=== PATIENT | female | born 1990 | race Asian ===

== ENCOUNTER → 2017-02-02 | Outpatient (CLI) | payer OTHER ==
[2017-02-02 14:37] LABS: URINE APPEARANCE CLEAR (CLEAR); URINE BILIRUBIN NEG (NEG); URINE COLOR YELLOW; URINE NITRITE NEG (NEG); URINE SPECIFIC GRAVITY 1.016 (1.000-1.030); UROBILINOGEN NEG (NEG)
[2017-02-02 14:44] LABS: MANUAL MICROSCOPIC REQUIRED? NO; REVIEW REQ? NO
== END | disposition home or self-care (01) ==
LOC: C.LABSPEC 13:52
PROVIDERS: ATTEND Obstetrics & Gynecology
DX: Z34.01 Encounter for supervision of normal first pregnancy, first trimester (principal)

== ENCOUNTER → 2017-02-08 | Outpatient (CLI) | payer OTHER ==
[2017-02-08 10:10] LABS: BASO % 0.1 %; BASO ABS # 0.01 K/uL (0-0.2); COMPLETE YES; EOS % 1.9 %; HEMATOCRIT 40.3 % (37-47); IG% 0.2 %; LYMPH % 17.2 %; LYMPH ABS # 1.42 K/uL (1.2-3.4); MEAN CELL VOLUME 85.4 fL (80-100); MEAN CORPUSCULAR HEMOGLOBIN 30.3 pg (25-34); MEAN CORPUSCULAR HGB CONC 35.5 g/dl (32-36); MEAN PLATELET VOLUME 10.9 fL (7.4-10.4); MONO % 6.5 %; NEUT % 74.1 %; PLATELET COUNT 250 K/uL (130-400); RED BLOOD COUNT 4.72 M/uL (4.2-5.4); WHITE BLOOD COUNT 8.26 K/uL (4.8-10.8)
[2017-02-11 00:08] LABS: CHLAMYDIA TRACH RNA*** NOT DETECTED (NOT DETECTED); GC (NEIS GONORRHOEAE)RNA** NOT DETECTED (NOT DETECTED)
== END | disposition home or self-care (01) ==
LOC: C.LAB1850 09:00
PROVIDERS: ATTEND Obstetrics & Gynecology
DX: Z34.01 Encounter for supervision of normal first pregnancy, first trimester (principal)

== ENCOUNTER → 2017-02-08 | Outpatient (CLI) | payer OTHER | END | disposition home or self-care (01) | LOC: C.PAPS 15:05 | PROVIDERS: ATTEND Obstetrics & Gynecology | DX: Z34.01 Encounter for supervision of normal first pregnancy, first trimester (principal) ==

== ENCOUNTER → 2017-03-31 | Outpatient (CLI) | payer OTHER ==
[2017-03-31 18:15] LABS: GTGD 50 Grams
== END | disposition home or self-care (01) ==
LOC: C.LAB1850 16:17
PROVIDERS: ATTEND Obstetrics & Gynecology
DX: Z34.01 Encounter for supervision of normal first pregnancy, first trimester (principal)

== ENCOUNTER → 2017-06-21 | Outpatient (CLI) | payer OTHER ==
[~2017-06-21] MED LIST: DIPH25CA65 PO; PRENTAB26 PO
[2017-06-21 17:32] LABS: HEMATOCRIT 33.8 % (37-47); HEMOGLOBIN 11.7 g/dL (12.0-16.0)
== END | disposition home or self-care (01) ==
LOC: C.LAB1850 16:28
PROVIDERS: ATTEND Obstetrics & Gynecology
DX: Z34.03 Encounter for supervision of normal first pregnancy, third trimester (principal)

== ENCOUNTER → 2017-08-16 | Outpatient (CLI) | payer OTHER | END | disposition home or self-care (01) | LOC: C.LABSPEC 17:33 | PROVIDERS: ATTEND Obstetrics & Gynecology | DX: Z34.03 Encounter for supervision of normal first pregnancy, third trimester (principal) ==

== ENCOUNTER 2017-09-10 22:39 | Outpatient (CLI) | payer OTHER ==
[~2017-09-10] VITALS: Ht 154.9 cm; Wt 65.0 kg
[2017-09-10 23:33] VITALS: Ht 154.9 cm; Wt 65.0 kg
[2017-09-11] MEDS ORDERED: ZOLPIDEM TARTRATE 10 MG TAB PO ONE (01:45)
== END 2017-09-11 01:55 | disposition home or self-care (01) ==
LOC: C.OPB 22:39 → C.LD 22:39 → C.OPB 09-11 01:55
PROVIDERS: ATTEND Obstetrics & Gynecology
DX: Z34.01 Encounter for supervision of normal first pregnancy, first trimester (principal)

== ENCOUNTER 2017-09-11 16:38 | Inpatient (IN) | payer OTHER ==
[~2017-09-11] VITALS: Ht 154.9 cm; Wt 65.0 kg
[~2017-09-11 16:38] MED LIST changes: -DIPH25CA65 PO
[2017-09-11] MEDS ORDERED: LACTATED RINGER'S 1000ML 1,000 ML IV PRN (16:57)
[2017-09-11 17:15] VITALS: Ht 154.9 cm; Wt 65.0 kg
[2017-09-11] MEDS ORDERED: BUPIVACAINE 0.25% 30 ML VIAL ONE (17:15)
[2017-09-11] MEDS ORDERED: EpHEDrine SULFATE INJ 50 MG/ML AMP ONE (17:15)
[2017-09-11] MEDS ORDERED: FENTANYL 2MCG/ML ROPIV 1.25MG/ML 100ML BAG EPI ONE (17:16)
[2017-09-11] MEDS ORDERED: FENTANYL CITRATE INJ 50 MCG/1 ML 2 ML VIAL ONE (17:16)
[2017-09-11] MEDS ORDERED: NALOXONE HCL INJ 1 MG in SODIUM CHLORIDE 0.9% 1000ML 1,000 ML IV PRN (17:22)
[2017-09-11] MEDS ORDERED: LACTATED RINGER'S 1000ML 500 ML IV PRN ×2 (17:22→18:55)
[2017-09-11 17:27] LABS: HEMATOCRIT 41.6 % (37-47); HEMOGLOBIN 14.6 g/dL (12.0-16.0); MEAN CELL VOLUME 87.8 fL (80-100); MEAN CORPUSCULAR HEMOGLOBIN 30.8 pg (25-34); MEAN CORPUSCULAR HGB CONC 35.1 g/dl (32-36); MEAN PLATELET VOLUME 10.9 fL (7.4-10.4); PLATELET COUNT 200 K/uL (130-400); RED CELL DISTRIBUTION WIDTH CV 13.9 % (11.5-14.5); RED CELL DISTRIBUTION WIDTH SD 44.7 fL (36.4-46.3); WHITE BLOOD COUNT 14.81 K/uL (4.8-10.8)
[2017-09-11] MEDS: LACTATED RINGER'S 1000ML 1,000 ML IV SCH ×2 (17:29→18:24)
[2017-09-11] MEDS ORDERED: ONDANSETRON INJ 2 MG/ML 2 ML VIAL IV PRN (17:30)
[2017-09-11] MEDS ORDERED: FENTANYL 2MCG/ML ROPIV 1.25MG/ML 100ML BAG EPI PRN (17:30)
[2017-09-11] MEDS ORDERED: DiphenhydrAMINE HCL 50 MG/ML VIAL IV PRN (17:30)
[2017-09-11] MEDS ORDERED: NALBUPHINE HCL INJ 10 MG/ML AMP IV PRN (17:30)
[2017-09-11] MEDS ORDERED: EpHEDrine SULFATE INJ 50 MG/ML AMP IV PRN (17:30)
[2017-09-11] MEDS ORDERED: NALOXONE HCL INJ 0.4 MG/1 ML VIAL/CARP IV PRN (17:30)
[2017-09-11] MEDS ORDERED: OXYTOCIN 30 UNITS/500ML NSS IV PRN ×2 (19:00→23:00)
[2017-09-11] MEDS ORDERED: SUPERCREAM 0.870 % 15GM JAR EXT PRN (23:00)
[2017-09-11] MEDS ORDERED: BENZOCAINE 20% AER SPR 82.5 GM CAN EXT PRN (23:00)
[2017-09-11] MEDS ORDERED: LANOLIN OINT EXT PRN (23:00)
[2017-09-11] MEDS ORDERED: HYDROCORTISONE ACETATE 25 MG SUPP PR PRN (23:00)
[2017-09-11] MEDS ORDERED: ACETAMINOPHEN/CODEINE 300/30MG TAB PO PRN (23:00)
[2017-09-11] MEDS ORDERED: ACETAMINOPHEN 325 MG TAB PO PRN (23:00)
[2017-09-11] MEDS ORDERED: DIPHTHERIA/TETANUS/PERTUSSIS 0.5 ML SYR/VIAL IM. ONE (23:00)
--- NOTE | 2017-09-11 23:40 | Anesthesia Procedure Note ---
Anesthesia Epidural Removal Nt Date & Time Sep 11, 2017 at 23:40 Vital Signs Pain Intensity: 10.0 Notes Mental Status: alert / awake / arousable, participated in evaluation Nausea / Vomiting: adequately controlled Pain: adequately controlled Airway Patency, RR, SpO2: stable & adequate BP & HR: stable & adequate Hydration State: stable & adequate Neuraxial Anesthesia: was administered Anesthetic Complications: no major complications apparent, pt satisfied with anesthetic care Epidural: removed without complications, with tip intact
[2017-09-12] VITALS (7 sets, daily range): BP systolic 96–107; BP diastolic 59–68; PULSE 101–112; TEMP 36.7–37.1; O2SAT 95–99
[2017-09-12] MEDS: ACETAMINOPHEN/CODEINE 300/30MG TAB PO PRN ×3 (01:36→16:20)
--- NOTE | 2017-09-12 05:13 | DELIVERY SUMMARY ---
DATE OF OPERATION: 09/11/2017 FINDINGS: Viable female with Apgars of 7 and 9. Arterial and venous cord gases pending. Baby delivered spontaneously over a midline episiotomy. Cord gases and cord blood samples obtained. Placenta delivered spontaneously. Episiotomy repaired with 4-0 and 2-0 Vicryl. ESTIMATED BLOOD LOSS: 300 mL. LABOR NOTE: The patient is a 27-year-old 1, para 0 with an EDC of 10 September at 40+ weeks' gestational age who presented to labor and delivery in active labor. The patient had been having prodromal contractions for the previous 36 hours. She had been evaluated on labor and delivery 15 hours prior to admission and was discharged home after receiving a sleeping pill. The patient has had a benign course. Her blood type is B+, antibody negative, rubella immune, hepatitis B negative; she declined a quad screen, she denied a normal 1-hour Glucola x2 and a negative third trimester beta strep culture. Upon admission, the patient was 3 cm dilated, 100% effaced with 0 station. Tracing was category 1. The patient very uncomfortable, anesthesia was consulted and an epidural was placed. Following placement of the epidural 2 hours later, there have been no change in cervical dilatation. She had artificial rupture of membranes for clear fluid. An intrauterine pressure catheter was placed and Pitocin augmentation was initiated for secondary arrest of dilatation. Over the next 3 hours, the patient progressed to full dilatation and began her second stage and she pushed for approximately 20 minutes delivering the viable female infant. Tight nuchal cord was cut on the perineum. The remainder of the baby was delivered. Cord gases and cord blood samples obtained. Placenta delivered spontaneously. Midline episiotomy was repaired with 4-0 and 2-0 Vicryl in a routine fashion. Estimated blood loss 300 mL. Sponge and needle count was correct. I attest to the content of the Intraoperative Record and any orders documented therein. Any exception s are noted below.
[2017-09-12 06:29] LABS: HEMATOCRIT 34.7 % (37-47); HEMOGLOBIN 12.2 g/dL (12.0-16.0)
--- NOTE | 2017-09-12 07:05 | Progress Note ---
Subjective Sep 12, 2017. Subjective conversation w/ patient, physical exam, chart review, lab review Ambulation: ambulating normally Voiding: no voiding problems Passing Gas: Yes Diet Tolerance: Regular Diet Lochia: Moderate Feeding Type: Breast Feeding Comment: reports pain behind both knees bilaterally. Review of Systems Constitutional: No fever, No chills Respiratory: No cough, No shortness of breath Cardiac: No chest pain, No edema Abdomen: No pain, No nausea, No vomiting Female : No dysuria Objective Vital Signs Date Time Temp Pulse Resp B/P (MAP) Pulse Ox O2 Delivery O2 Flow Rate FiO2 09/12/17 03:50 36.7 102 20 99/59 (72) 97 Room Air 09/12/17 01:35 37.0 112 20 101/65 (77) 98 Room Air 09/12/17 01:35 98 Room Air Physical Exam General Appearance: WELL-APPEARING, WD/WN, NO APPARENT DISTRESS Respiratory/Chest: lungs clear, no accessory muscle use Cardiovascular: regular rate, rhythm, no murmur Abdomen: normal bowel sounds, non tender Fundus: Firm Extremities: non-tender, normal inspection, + calf tenderness (c/o tenderness bilaterally, no erythema or edema) Laboratory Results Last 24 Hours Test 09/11/17 17:14 09/12/17 05:57 White Blood Count 14.81 K/uL Red Blood Count 4.74 M/uL Hemoglobin 14.6 g/dL 12.2 g/dL Hematocrit 41.6 % 34.7 % Mean Corpuscular Volume 87.8 fL Mean Corpuscular Hemoglobin 30.8 pg Mean Corpuscular Hemoglobin Concent 35.1 g/dl RDW Standard Deviation 44.7 fL RDW Coefficient of Variation 13.9 % Platelet Count 200 K/uL Mean Platelet Volume 10.9 fL Medications Current Inpatient Medications Medications (Trade) Dose Ordered Sig/Sonam Route Start Time Stop Time Status Last Admin Dose Admin Oxytocin (Pitocin IV) 30 units UD PRN IV 09/11/17 23:00 10/11/17 22:59 Benzocaine (Dermoplast Aero Spr) 1 appln PRN PRN EXT 09/11/17 23:00 10/11/17 22:59 09/12/17 01:40 1 APPLN Cocaine HCl (Supercream 0.870% Cr) BID PRN EXT 09/11/17 23:00 09/25/17 22:59 Hydrocortisone Acetate (Anusol Hc Supp) 25 mg BID PRN ND 09/11/17 23:00 10/11/17 22:59 Lanolin (Lanolin Oint) PRN PRN EXT 09/11/17 23:00 10/11/17 22:59 Prenat Multivit/ [place]/Iron/Folic Ac ( Vitamin Tab) 1 tab DAILY PO 09/12/17 08:00 10/12/17 07:59 Ibuprofen (Motrin Tab) 600 mg Q4H PRN PO 09/11/17 23:00 10/11/17 22:59 Acetaminophen (Tylenol Tab) 650 mg Q6H PRN PO 09/11/17 23:00 10/11/17 22:59 Acetaminophen/ Codeine Phosphate (Tylenol w/ Codeine #3 Tab) 1 tab Q4H PRN PO 09/11/17 23:00 10/11/17 22:59 09/12/17 01:36 1 TAB Acetaminophen/ Codeine Phosphate (Tylenol w/ Codeine #3 Tab) 2 tab Q4H PRN PO 09/11/17 23:00 10/11/17 22:59 Bisacodyl (Dulcolax Tab) 5 mg 20 PO 09/12/17 20:00 09/12/17 20:01 Docusate Sodium (coLACE CAP) 100 mg BID PO 09/12/17 08:00 10/12/17 07:59 Ferrous Sulfate (Feosol Tab) 325 mg DAILY PO 09/12/17 08:00 10/12/17 07:59 Assessment and Plan Post-, Post-Op Day#: 1 Continue Routine Care: 27 F , B+/RI/GBS-, PPD 1 recovering well, but has bilateral LE tenderness. Reviewed patients vitals, HR approx 100, BP 100/60. Patient did complain of bilateral upper calf/popliteal pain. No overlying erythema or warmth. No family history or personal h/o DVT or coagulopathy. Pt hgb was 14.6 on admission---> 12.2 today. Plan; 1. Recovery from vaginal delivery-- Encourage PO intake, follow i/o's, ambulate , support BF, control pain 2. Bilateral calf/popliteal tenderness--R/o DVT--Bilateral doppler USG. Likely MSK in origin. Will continue to follow. Resident Physician Supervision Note: I interviewed and examined the patient. Discussed with Dr. Espinosa and agree with findings and plan as documented in the note. Any exceptions or clarifications are listed here: Pt c/o bilateral calf tenderness. painful to palpation, no erythema or edema, (-)Park's, suspect muscle pain but will check bilateral Doppler Documented By: Tristan Paulino
[2017-09-12] MEDS: DOCUSATE SODIUM 100 MG CAP PO SCH ×2 (08:10→19:45)
[2017-09-12] MEDS: FERROUS SULFATE 325 MG TAB PO SCH (08:10)
[2017-09-12] MEDS: IBUPROFEN 600 MG TAB PO PRN ×3 (08:10→19:46)
[2017-09-12] MEDS: PRENATAL VITAMIN TAB PO SCH (08:10)
--- NOTE | 2017-09-12 09:37 | DIAGNOSTIC IMAGING REPORT ---
BILATERAL LOWER EXTREMITY VENOUS DOPPLER CLINICAL HISTORY: bilateral calf/popliteal pain COMPARISON STUDY: No previous studies for comparison. TECHNIQUE: Sonography of the deep venous system of the bilateral lower extremities was performed. Compression and augmentation were evaluated. FINDINGS: The bilateral common femoral, superficial femoral and popliteal veins were compressible. Augmentation was normal. Flow was shown within the deep calf vessels. IMPRESSION: No evidence of deep venous thrombus within the bilateral lower extremities. Electronically signed by: Yovany Proctor M.D. 09/12/2017 9:36 AM Dictated Date/Time: 09/12/2017 9:36 AM
[2017-09-12] MEDS ORDERED: BISACODYL 5 MG TABEC PO SCH (20:00)
--- NOTE | 2017-09-13 07:00 | Progress Note ---
Subjective Sep 13, 2017. Subjective conversation w/ patient, physical exam, chart review, lab review Ambulation: ambulating normally Voiding: no voiding problems Passing Gas: Yes Diet Tolerance: Regular Diet Lochia: Small Feeding Type: Breast Feeding Review of Systems Constitutional: No fever, No chills Respiratory: No cough, No shortness of breath Cardiac: No chest pain Abdomen: No pain, No nausea, No vomiting Female : No dysuria Objective Vital Signs Date Time Temp Pulse Resp B/P (MAP) Pulse Ox O2 Delivery O2 Flow Rate FiO2 09/12/17 23:45 36.7 111 16 98/63 (75) 99 Room Air 09/12/17 23:45 Room Air 09/12/17 20:00 36.8 108 16 107/68 (81) Room Air 09/12/17 16:00 Room Air 09/12/17 16:00 36.8 101 18 98/59 (72) Room Air 09/12/17 12:00 37.1 103 18 97/59 (72) Room Air 09/12/17 07:50 95 Room Air 09/12/17 07:50 36.8 104 16 96/63 (74) 95 Room Air Physical Exam General Appearance: WELL-APPEARING, WD/WN, NO APPARENT DISTRESS Respiratory/Chest: lungs clear, no respiratory distress Cardiovascular: regular rate, rhythm, no murmur Abdomen: non tender, soft Fundus: Firm, Relation to Umbilicus (below umbilicus ) Extremities: non-tender, normal inspection Medications Current Inpatient Medications Medications (Trade) Dose Ordered Sig/Sonam Route Start Time Stop Time Status Last Admin Dose Admin Oxytocin (Pitocin IV) 30 units UD PRN IV 09/11/17 23:00 10/11/17 22:59 Benzocaine (Dermoplast Aero Spr) 1 appln PRN PRN EXT 09/11/17 23:00 10/11/17 22:59 09/12/17 01:40 1 APPLN Cocaine HCl (Supercream 0.870% Cr) BID PRN EXT 09/11/17 23:00 09/25/17 22:59 Hydrocortisone Acetate (Anusol Hc Supp) 25 mg BID PRN MT 09/11/17 23:00 10/11/17 22:59 Lanolin (Lanolin Oint) PRN PRN EXT 09/11/17 23:00 10/11/17 22:59 Prenat Multivit/ Handkerchief Folder/Iron/Folic Ac ( Vitamin Tab) 1 tab DAILY PO 09/12/17 08:00 10/12/17 07:59 09/12/17 08:10 1 TAB Ibuprofen (Motrin Tab) 600 mg Q4H PRN PO 09/11/17 23:00 10/11/17 22:59 09/12/17 19:46 600 MG Acetaminophen (Tylenol Tab) 650 mg Q6H PRN PO 09/11/17 23:00 10/11/17 22:59 Acetaminophen/ Codeine Phosphate (Tylenol w/ Codeine #3 Tab) 1 tab Q4H PRN PO 09/11/17 23:00 10/11/17 22:59 09/12/17 16:20 1 TAB Acetaminophen/ Codeine Phosphate (Tylenol w/ Codeine #3 Tab) 2 tab Q4H PRN PO 09/11/17 23:00 10/11/17 22:59 Docusate Sodium (coLACE CAP) 100 mg BID PO 09/12/17 08:00 10/12/17 07:59 09/12/17 19:45 100 MG Ferrous Sulfate (Feosol Tab) 325 mg DAILY PO 09/12/17 08:00 10/12/17 07:59 09/12/17 08:10 325 MG Assessment and Plan Post-, Post-Op Day#: 2 Continue Routine Care: 27 F , B+/RI/GBS-, PPD 2 recovering well Reviewed patients vitals, HR approx 100, BP 100/60. Leg pain has resolved. Plan; 1. Recovery from vaginal delivery-- Encourage PO intake, follow i/o's, ambulate , support BF, control pain 2. Bilateral calf/popliteal tenderness--leg pain has resolved today, likely MSK in origin. Bilateral dopplers unremarkable fro DVT yesterday. 3. Discussed discharge planning Resident Physician Supervision Note: I interviewed and examined the patient. Discussed with Dr. Espinosa and agree with findings and plan as documented in the note. Any exceptions or clarifications are listed here: Doing well. FF 2 down. Leg pain resolved. Ready for d/c home. . Instructions reviewed. F/u 6 wks pp check. Documented By: Azul Mccall
--- NOTE | 2017-09-13 07:01 | Discharge Instructions ---
Discharge Instructions Date of Service Sep 13, 2017. Admission Reason for Admission: Check Labor Discharge Discharge Diagnosis / Problem: recovery from vaginal delivery Discharge Goals Goal(s): Routine recovery after delivery Medications Continue Dispensed Medications: supercream, dermaplast, tucks, lansinoh Activity Recommendations Activity Limitations: per Instructions/Follow-up section . Instructions / Follow-Up Instructions / Follow-Up ACTIVITY RECOMMENDATIONS: * Gradual return to full activity over the next 2-3 weeks. * No lifting - nothing heavier than baby over the next 2-3 weeks. * Do not engage in vigorous exercise, sexual activity or sports until cleared by your physician. * Do not drive or operate any motorized equipment until cleared by your physician. * You may shower/bathe daily. MEDICATIONS: For discomfort or pain, you may use Acetaminophen (Tylenol), Ibuprofen (Advil), or Naproxen (Aleve) following the package directions. For constipation you may use Colace following the package directions. BREAST CARE: If you are not breast feeding: * Wear a supportive bra 24 hours a day for one to two weeks. * Avoid stimulating your breasts and nipples as much as possible during the first few weeks after delivery. * When taking a shower, have the warm water hit your back, not breasts. * When your breasts feel full, apply ice packs. Usually three to four times a day helps ease the discomfort. * Take a mild pain medication (Tylenol / Motrin) when you are uncomfortable. If breast feeding: * Use breast milk to lubricate nipples. Lansinoh cream may be used for sore nipples. You do not need to remove cream prior to breast feeding. If using a different brand of cream, check the label for directions regarding removal of cream prior to nursing. * Wear a supportive bra. * If having problems with breasts or breast feeding, call a production consultant or your health care provider. EPISIOTOMY CARE: After delivery, if you have an episiotomy (stitches), the following steps will ease discomfort and aid healing. * For the first 24 hours after delivery, place ice packs next to your episiotomy to help reduce swelling. * After the first 24 hour-period, sitz baths, either portable or in the tub, are suggested. A shower with a shower arm sprayed over the episiotomy may be comforting. * Rupali care should be done after each voiding and bowel movement. Squirt warm water from a plastic bottle over the perineum (region of the body between the anus and urinary opening) and pat dry. * Use Dermoplast to ease discomfort. Shake container. [place] directly over the episiotomy. Place a Tucks on a clean sanitary pad next to your episiotomy. SPECIAL CARE INSTRUCTIONS: When you are discharged from the hospital, it is important for you to follow the instructions listed below: * During the first week at home, you should be able to care for yourself and your baby. In addition, the usual light household activities are encouraged. * Limit your activities to the way you feel. Do not try to clean the house or move furniture. Be sensible. * If you actively engage in sports and have done so up until the time of your delivery, you may resume these activities as soon as you feel able. This may take up to one month or even longer. Use good judgment. * Continue to take your vitamins for at least six weeks after the of your baby. * Your diet need not be limited unless you were on a special diet before your delivery. Breast-feeding mothers need around 2500 calories per day and at least 64-80 ounces of fluid per day (8 to 10 glasses). * You should eat foods from the four major food groups. Crash diets or fad diets are to be avoided. Eating lean meats, fresh fruits and vegetables, low-fat dairy products, high fiber foods and a regular exercise program, will help you get back to your pre- weight without putting your health at risk. * Constipation is sometimes a problem after delivery. Take a mild laxative as needed. If breast feeding, Milk of Magnesia is acceptable to use. You may use a suppository or Fleets enema if no episiotomy. * A daily shower or tub bath is suggested. Be sure to thoroughly and gently dry the perineum. * A bloody vaginal discharge will usually continue until around four weeks post . A small amount of bleeding may continue for as long as six weeks. Vaginal discharge changes from the bright red bleeding after delivery to pink then brownish and finally yellowish-pink before becoming white and disappearing. * Bleeding may increase with activity. Your first period may come in 4-8 weeks. If you are breast feeding, your period may be delayed even longer. * [place] (sex) can begin whenever both you and your partner feel comfortable and do not have any form of genital infection. It is recommended that you wait at least six weeks for internal and external healing to occur. If you have questions, please talk to your health care practitioner. A condom should be used to prevent infection and . * Foreplay, gentle intercourse and lubrication is very important the first several times to prevent pain. A water-based lubricant such as K-Y jelly or Astroglide may be used. * If you have RH negative blood and your baby is RH positive, you will receive RHOGAM by injection prior to discharge. The nurse will give you a card to keep with you that has the date and place that you received RHOGAM after delivery. * During your care, you had a Rubella screen done to check for the presence of rubella antibodies in your blood. If your test was negative, you will receive a Rubella vaccine prior to discharge. This vaccine may cause a fever, soreness at the injection site and flu-like symptoms. If these symptoms persist, notify your health care practitioner. is not advised for one month after a Rubella vaccine. * Verbalizes understanding of car seat law as reviewed with patient nursing. * Car Seat hand-out given and reviewed with patient by nursing. * Shaken baby information reviewed with patient by nursing. Call you doctor if: * Heavy bleeding (saturating several pads an hour) or passing clots the size of your fist. * A fever >101 degrees F (38.3 degrees C) on two occasions four hours apart and /or chills. * Unusual pain in the pelvic or vaginal areas. * "Baby Blues" lasting longer than two weeks. If you have any questions or concerns, call your health care practitioner at . FOLLOW UP VISIT: * Please call the office at to schedule a 6 week examination. It is important you keep this appointment. It is important for you to make arrangements for either yearly or twice yearly check-ups thereafter. Current Hospital Diet Patient's current hospital diet: Vegetarian Diet Discharge Diet Recommended Diet: Regular Diet, Regular OB Diet Pending Studies Studies pending at discharge: no Medical Emergencies . Who to Call and When: Medical Emergencies: If at any time you feel your situation is an emergency, please call 911 immediately. . Non-Emergent Contact Non-Emergency issues call your: Primary Care Provider, [employer] . . "Provider Documentation" section prepared by Ministerio Espinosa. .
[2017-09-13 07:24] VITALS: BP 95/63; PULSE 99; TEMP 36.8; O2SAT 99
[2017-09-13] MEDS: PRENATAL VITAMIN TAB PO SCH (08:17)
[2017-09-13] MEDS: DOCUSATE SODIUM 100 MG CAP PO SCH (08:17)
[2017-09-13] MEDS: FERROUS SULFATE 325 MG TAB PO SCH (08:17)
[2017-09-13] MEDS: IBUPROFEN 600 MG TAB PO PRN (08:18)
[2017-09-13 09:00] VITALS: O2SAT 99
[2017-09-13 10:26] VITALS: BP_DIAS 63; PULSE 99; TEMP 36.8
== END 2017-09-13 11:50 | disposition home or self-care (01) | DRG 775 ==
LOC: C.OPB 16:38 → C.LD 16:38 → C.OPB 16:59 → C.LD 16:59 → C.OBG 09-12 01:39
PROVIDERS: ADMIT Obstetrics & Gynecology; ATTEND Obstetrics & Gynecology
PROC: 10E0XZZ Delivery of Products of Conception, External Approach (ICD-10-PCS; principal; 2017-09-09)
PROC: 0W8NXZZ Division of Female Perineum, External Approach (ICD-10-PCS; principal; 2017-09-09)
DX: O48.0 Post-term pregnancy (principal); O69.1XX0 Labor and delivery complicated by cord around neck, with compression, not applicable or unspecified; Z37.0 Single live birth; Z3A.40 40 weeks gestation of pregnancy